=== PATIENT | male | born 1985 | race Two or more races ===

== ENCOUNTER 2025-04-15 20:08 | Inpatient (IN) | payer MEDICAID, OTHER ==
[~2025-04-15] VITALS: Ht 162.6 cm; Wt 73.8 kg
--- NOTE | 2025-04-15 20:47 | ED.PDOC ---
GI ASSESSMENT HPI Comments 39-year-old male who comes in with chief complaint of abdominal pain since this morning. The patient has a history of this pain in the past but was much milder. The pain is diffuse in nature and nonradiating. It is associated with nausea and diarrhea. At this time he states that the pain is a 9/10. He denies any fever or dysuria. He was able to ambulate into the emergency department's without any difficulty. He does admit to marijuana use as well as cigarette use. Chief Complaint: Abdominal Pain Time Seen by MD: 20:11 Reviewed Notes: Nurses Notes, Medications, Allergies (No allergies to medications) Information Source: Patient Mode of Arrival: Ambulatory Timing: Hours Duration: Since onset Prehospital treatment: None Quality: Burning, Cramping Vomitus: None Stool: Watery Severity: Moderate Recent: None Recent Hx of: None Pain Location: Diffuse Modifying Factors: Nothing Associated sign and symptoms: Nausea, Diarrhea, Abdominal Pain Past Medical History PAST MEDICAL HISTORY: Denies Surgical History: Denies all surgeries Family History Family History: Reviewed,noncontributory to illness Social History Smoker: Cigarettes Alcohol: Denies ETOH Use Drugs: Marijuana Lives In: Home Constitutional: denies: chills, diaphoresis, fatigue, fever, malaise, sweats, weakness, others EENTM: denies: blurred vision, double vision, ear bleeding, ear discharge, ear drainage, ear pain, ear ringing, eye pain, eye redness, hearing loss, mouth pain, mouth swelling, nasal discharge, nose bleeding, nose congestion, nose pa in, photophobia, tearing, throat pain, throat swelling, voice changes, others Respiratory: denies: cough, hemoptysis, orthopnea, SOB at rest, shortness of breath, SOB with excertion, stridor, wheezing, others Cardiovascular: denies: chest pain, dizzy spells, diaphoresis, Dyspnea on exertion, edema, irregular heart beat, left arm pain, lightheadedness, palpitations, PND, syncope, others Gastrointestinal: reports: abdominal pain, diarrhea, nausea; denies: abdomen distended, blood streaked bowels, constipated, dysphagia, difficulty swallowing, hematemesis, melena, poor appetite, poor fluid intake, rectal bleeding, rectal pain, vomiting, others Genitourinary: denies: burning, dysuria, flank pain, frequency, hematuria, incontinence, penile discharge, penile sore, pain, testicle pain, testicle swelling, urgency, others Neurological: denies: dizziness, fainting, headache, left sided numbness, left sided weakness, numbness, paresthesia, pre-existing deficit, right sided nu mbness, right sided weakness, seizure, speech problems, tingling, tremors, weakness, others Musculoskeletal: denies: back pain, gout, joint pain, joint swelling, muscle pain, muscle stiffness, neck pain, others Integumetry: denies: bruises, change in color, change in hair/nails, dryness, laceration, lesions, lumps, rash, wounds, others Allergic/Immunocompromised: denies: Difficulty Healing, Frequent Infections, Hives, Itching, others Hematologic/Lymphatic: denies: anemia, blood clots, easy bleeding, easy bruising, swollen glands, others Endocrine: denies: excessive hunger, excessive sweating, excessive thirst, excessive urination, flushing, intolerance to cold, intolerance to heat, unexplained weight gain, unexplained weight loss, others Psychiatric: denies: anxiety, bipolar disorder, depression, hopeless, panic disorder, schizophrenia, sleepless, suicidal, others Physical Exam General Appearance: Moderate Distress HEENT: Normal ENT Inspection, Pharynx Normal, TMs Normal Neck: Full Range of Motion, Non-Tender, Normal, Normal Inspection Respiratory: Chest Non-Tender, Lungs Clear, No Accessory Muscle Use, No Respiratory Distress, Normal Breath Sounds Cardiovascular: No Edema, No JVD, No Murmur, No Gallop, Normal Peripheral Pulses, Regular Rate/Rhythm Breast Exam: Deferred Gastrointestinal: Diffuse, No Organomegaly, No Pulsatile Mass, Normal Bowel Sounds, Soft, Tenderness Genitalia: Deferred Pelvic: Deferred Rectal: Deferred Extremities: No calf tenderness, Normal capillary refill, Normal inspection, Normal range of motion, Non-tender, No pedal edema Musculoskeletal : Apperance: Normal Neurologic: Alert, jet inspector II-XII nml as Tested, Motor Weakness, Normal Affect, Normal Mood, No Sensory Deficits Cerebellar Function: Normal Reflexes: Normal Skin: Dry, Normal Color, Warm Lymphatic: No Adenopathy Was a procedure done? Was a procedure done?: No GI differential Dx Differential Diagnosis: Appendicitis, Gastritis/PUD, Gastroenteritis, Inflammatory BD, Ischemic Bowel, Pancreatitis, Electrolyte Imbalance, Food Poisoning X-Ray, Labs, Meds, VS Vital Signs Date Time Temp Pulse Resp B/P (MAP) Pulse Ox O2 Delivery O2 Flow Rate FiO2 04/15/25 21:29 83 18 159/90 04/15/25 20:36 98.0 83 18 159/98 99 98.0 Lab Test 04/15/25 20:51 Range/Units White Blood Count 10.6 4.4-10.8 10^3/uL Red Blood Count 5.28 4.5-5.90 10^6/uL Hemoglobin 15.9 13.5-17.5 g/dL Hematocrit 46.7 41.0-53.0 % Mean Corpuscular Volume 88.5 80.0-100.0 fL Mean Corpuscular Hemoglobin 30.1 28.0-32.0 pg Mean Corpuscular Hemoglobin Concent 34.0 32.0-36.0 g/dL Red Cell Distribution Width 14.7 H 11.8-14.3 % Platelet Count 489 H 140-450 10^3/uL Mean Platelet Volume 6.4 L 6.9-10.8 fL Neutrophils (%) (Auto) 77.6 37.0-80.0 % Lymphocytes (%) (Auto) 15.4 10.0-50.0 % Monocytes (%) (Auto) 5.7 0.0-12.0 % Eosinophils (%) (Auto) 1.0 0.0-7.0 % Basophils (%) (Auto) 0.3 0.0-2.0 % Neutrophils # (Auto) 8.2 1.6-8.6 10 ^3/uL Lymphocytes # (Auto) 1.6 0.4-5.4 10 ^3/uL Monocytes # (Auto) 0.6 0-1.3 10 ^3/uL Eosinophils # (Auto) 0.1 0-0.8 10 ^3/uL Basophils # (Auto) 0 0-0.2 10 ^3/uL Nucleated Red Blood Cells 0.0 % Sodium Level 141 136-145 mmol/L Potassium Level 4.7 3.5-5.1 mmol/L Chloride Level 103 98-107 mmol/L Carbon Dioxide Level 27 20-31 mmol/L Anion Gap 11 5-15 Blood Urea Nitrogen 15 9-23 mg/dL Creatinine 1.01 0.700-1.30 mg/dL Glomerular Filtration Rate Calc 98 >90 mL/min BUN/Creatinine Ratio 14.9 10.0-20.0 Serum Glucose 110 H 74-106 mg/dL Calcium Level 10.5 H 8.7-10.4 mg/dL Total Bilirubin 0.5 0.2-1.0 mg/dL Aspartate Amino Transferase (AST) 17 13-40 U/L Alanine Aminotransferase (ALT) 22 7-40 U/L Alkaline Phosphatase 82 46-116 U/L Total Protein 7.9 5.7-8.2 g/dL Albumin 5.1 H 3.2-4.8 g/dL Lipase 32 12-53 U/L Current Medications Medications (Trade) Dose Ordered Sig/Kade Route Start Time Stop Time Status Last Admin Ondansetron HCl (Zofran) 4 mg ONCE ONCE IV 04/15/25 20:45 04/15/25 20:46 DC 04/15/25 21:29 Sodium Chloride 1,000 ml @ 1,000 mls/hr Q1H ONCE IVB 04/15/25 20:45 04/15/25 21:44 DC 04/15/25 21:28 Morphine Sulfate 4 mg ONCE ONCE IV 04/15/25 20:45 04/15/25 20:46 DC 04/15/25 21:29 PROCEDURE(s): ABPL - CT AB PEL WO CON-NO ORAL OR IV IMPRESSION: Limited noncontrast imaging. 12 mm hyperdense structures within the ascending colon, transverse colon and descending colon which may represent ingested medication/ foreign bodies. Large amount of fecal material and gas within the colon. Appendix is not completely visualized. Without complete visualization of the appendix, can not exclude acute appendicitis. IV Hep-Lock is being established The patient was given a 1 L bolus of normal saline The patient was given morphine 4 mg IV push for the pain The patient is given Zofran 4 mg for the nausea We spoke with Dr. Capellan who is the surgeon on-call and he will consult on this patient. The patient understands and agrees with the management. The patient is being admitted at this time. Images Reviewed?: Images reviewed and evaluated by me Time of 1ST Reevaluation: 20:47 Reevaluation 1ST: Unchanged Patient Education/Counseling: Diagnosis, Treatment, Prognosis Family Education/Counseling: No Family Present SEPSIS Sepsis Screen Date sepsis recognized/suspect: Apr 15, 2025 Time Sepsis recognized/suspect: 2035 Recent Procedure: No On Antibiotic Therapy: No Respiratory Rate >20: No Heart Rate >90: No Temp<36 C (96.8 F) or >38.3 C: No SBP <90 or MAP <65 mmHG: No New Acute Mental Status Change: No Is the patient on CPAP, BIPAP,: No Physician Orders Urinalysis (04/15/25 20:44) Ct Ab Pel Wo Con-No Oral Or Iv (04/15/25 20:44) Heplock Iv (04/15/25 20:44) Drug Screen (04/15/25 20:44) Vital Signs Date Time Temp Pulse Resp B/P (MAP) Pulse Ox O2 Delivery O2 Flow Rate FiO2 04/15/25 21:29 83 18 159/90 04/15/25 20:36 98.0 83 18 159/98 99 98.0 Laboratory Tests Test 04/15/25 20:51 White Blood Count 10.6 10^3/uL (4.4-10.8) Medications Medications Dose Ordered Sig/Kade Route Start Time Stop Time Status Last Admin Dose Admin Morphine Sulfate 4 mg ONCE ONCE IV 04/15/25 20:45 04/15/25 20:46 DC 04/15/25 21:29 Ondansetron HCl 4 mg ONCE ONCE IV 04/15/25 20:45 04/15/25 20:46 DC 04/15/25 21:29 Sodium Chloride 1,000 ml @ 1,000 mls/hr Q1H ONCE IVB 04/15/25 20:45 04/15/25 21:44 DC 04/15/25 21:28 Departure 1 Departure Time of Disposition: 21:59 Impression: Primary Impression: Intractable abdominal pain Additional Impression: Foreign body Disposition: ADMITTED INPATIENT Admit to: Med Surg Condition: Fair Critical Care Note Critical Care Time?: No Stability Stability form required: Yes Unstable for transfer: ED Physician Assesment (Clinical assesment) Heart Score Heart Score: Heart Score Response (Comments) Value History N/A 0 EKG N/A 0 Age N/A 0 Risk Factors N/A 0 Troponin N/A 0 Total 0 I personally scribed for EDDY KNUTSON MD ([email or web address]) on 04/15/25 at 21:45. Electronically submitted by Manolo Sandra [email or web address]). EDDY KNUTSON MD Apr 15, 2025 20:47
[2025-04-15 21:22] LABS: Hematocrit 46.7 % (41.0-53.0); Hemoglobin 15.9 g/dL (13.5-17.5); Mean Corpuscular Hemoglobin 30.1 pg (28.0-32.0); Mean Corpuscular Volume 88.5 fL (80.0-100.0); Nucleated Red Blood Cells % 0.0 %
[2025-04-15] MEDS: SODIUM CHLORIDE 0.9% 1,000 ML IVB ONE (21:28)
[2025-04-15] MEDS: MORPHINE SULFATE 4 MG/ML SYR/VIAL IV ONE (21:29)
[2025-04-15] MEDS: ONDANSETRON HCL 4 MG/2 ML VIAL IV ONE (21:29)
[2025-04-15 21:37] LABS: Alanine Aminotransferase 22 U/L (7-40); Alkaline Phosphatase 82 U/L (46-116); Anion Gap 11 (5-15); BUN/Creatinine Ratio 14.9 (10.0-20.0); Bilirubin, Total 0.5 mg/dL (0.2-1.0); Blood Urea Nitrogen 15 mg/dL (9-23); Carbon Dioxide 27 mmol/L (20-31); Chloride 103 mmol/L (98-107); Lipase 32 U/L (12-53); Potassium 4.7 mmol/L (3.5-5.1); Sodium 141 mmol/L (136-145); Total Protein 7.9 g/dL (5.7-8.2)
--- NOTE | 2025-04-15 21:39 | DVH ---
Exam: CT CT AB PEL WO CON-NO ORAL OR IV History: pain Comparison Study: None TECHNIQUE: Multidetector CT of the abdomen AND PELVIS without IV contrast. Axial, coronal and sagittal multiplanar reformats were obtained from the axial data set by the technologist. Radiation Dose Information: CT Dose: CTDI volume is 7.56 mGy. Dose-length product is 458.95 mGy*cm FINDINGS: Bibasilar atelectasis. Partially visualized heart is normal in size. Trace pericardial effusion. Liver, spleen, pancreas and adrenal glands are unremarkable. Gallbladder is unremarkable. Kidneys, ureters and urinary bladder unremarkable. Prostate is unremarkable. Stomach is unremarkable. Small bowel loops are unremarkable. Appendix is not completely visualized. Without complete visualization of the appendix, can not exclude acute appendicitis. Two 12 mm hyperdense structures within the ascending colon. Large amount of fecal material gas within the colon. Additional similar two 12 mm densities are noted within the proximal descending colon andone 12 mm similar hyperdensity within the transverse colon. No evidence of intraperitoneal free air or free fluid. No evidence of aortic aneurysm. No significant lymphadenopathy. Small fat containing umbilical hernia. Minimal body wall edema. Sclerotic focus of the right iliac bowel Large represent a small bone island. No destructive osseous lesions are noted. IMPRESSION: Limited noncontrast imaging. 12 mm hyperdense structures within the ascending colon, transverse colon and descending colon which may represent ingested medication/ foreign bodies. Large amount of fecal material and gas within the colon. Appendix is not completely visualized. Without complete visualization of the appendix, can not exclude acute appendicitis.
[2025-04-15 21:40] LABS: Albumin 5.1 g/dL (3.2-4.8); Calcium 10.5 mg/dL (8.7-10.4); Glucose 110 mg/dL (74-106)
[2025-04-15] MEDS ORDERED: ACETAMINOPHEN 325 MG TAB PO PRN (22:15)
[2025-04-15] MEDS ORDERED: MORPHINE SULFATE INJ 2 MG/ml SYRG IV PRN (22:15)
[2025-04-15] MEDS ORDERED: ONDANSETRON HCL 4 MG/2 ML VIAL IV PRN (22:15)
[2025-04-15] MEDS ORDERED: TEMAZEPAM 15 MG CAP PO PRN (22:15)
[2025-04-15] MEDS: PANTOPRAZOLE 40 MG/10 ML VIAL INJ IV ONE (23:04)
[2025-04-15 23:12] LABS: Amphetamine Screen, Urine Neg (NEGATIVE)
[2025-04-15 23:13] LABS: Cannabinoid Screen, Urine Neg (NEGATIVE)
[2025-04-15 23:14] LABS: Urine Protein, UAD Negative (Negative)
[2025-04-15 23:15] VITALS: BP 93/55; PULSE 79; RESP 18; TEMP 98.1; O2SAT 98
[2025-04-15 23:15] LABS: Barbiturate Scree,Urine Neg (NEGATIVE); Benzodiazephine Screen, Urine Neg (NEGATIVE); Cocaine Screen, Urine Neg (NEGATIVE); Opiate Scree,Urine Pos (NEGATIVE); Phencyclidine Screen, Urine Neg (NEGATIVE)
[2025-04-16] VITALS (10 sets, daily range): BP systolic 99–110; BP diastolic 58–76; PULSE 64–94; RESP 14–19; TEMP 97.4–99.4; O2SAT 96–100
[2025-04-16] MEDS: SODIUM CHLORIDE 0.9% 1,000 ML IV ONE (00:04)
--- NOTE | 2025-04-16 00:54 | DVHHP2 ---
History of Present Illness Reason for Visit: Abdominal pain History of Present Illness 39-year-old male presents for evaluation of abdominal pain. Patient endorses a two day history of abdominal pain. He states that yesterday pain was more manageable. He states that today pain was constant and sharp. He describes it as diffuse sharp. Reports developing diarrhea as well today. No nausea or vomiting. No fever or chills. Past Medical History Denies Past Surgical History Denies Family History Noncontributory Smoke: <1 pack per day ALCOHOL: none Drugs: Marijuana Lives: with Family Review of Systems Review of Systems Review of systems are currently negative otherwise addressed in HPI. Allergies: Coded Allergies: NO KNOWN ALLERGIES (Unverified , 04/15/25) Medications Current Medications Medications Dose Ordered Sig/Kade Route Start Time Stop Time Status Last Admin Dose Admin Pantoprazole Sodium 40 mg DAILY IV 04/16/25 10:00 Acetaminophen/ Hydrocodone Bitart 1 tab Q4HP PRN PO 04/15/25 22:15 Temazepam 15 mg QHSP PRN PO 04/15/25 22:15 Ondansetron HCl 4 mg Q4HP PRN IV 04/15/25 22:15 Acetaminophen 650 mg Q6HP PRN PO 04/15/25 22:15 Morphine Sulfate 2 mg Q6HPRN PRN IV 04/15/25 22:15 Exam Vital Signs Vital Signs Date Time Temp Pulse Resp B/P (MAP) Pulse Ox O2 Delivery O2 Flow Rate FiO2 04/15/25 23:15 98.1 79 18 93/55 (68) 98 98.1 Exam Gen: 31-year-old male in mild distress. Skin: Warm, dry, normal color and texture, no rash. HEENT: Normocephalic atraumatic, mucous membranes moist and pink. Neck: Cervical and supraclavicular nodes normal without enlargement, trachea is midline, thyroid gland is normal without masses. Pulmonary: Clear to auscultation and percussion bilaterally. Cardiac: Regular rate and rhythm. No murmur Abdomen: Soft, nontender, nondistended, bowel sounds present all 4 quadrants, no guarding, no rigidity, no organomegaly. Extremities: No cyanosis, clubbing, no edema Neuro: Cranial nerves II through XII grossly intact, normal affect and speech, no focal motor deficits. Labs/Xrays Labs Test 04/15/25 22:30 04/15/25 20:51 Range/Units Urine Color Light-yellow Yellow Urine Clarity Clear Clear Urine pH 5.5 5.0-9.0 Urine Specific Strong 1.022 1.001-1.035 Urine Protein Negative Negative Urine Ketones Negative Negative Urine Blood Negative Negative /uL Urine Nitrite Negative Negative Urine Bilirubin Negative Negative Urine Urobilinogen Normal Negative mg/dL Urine Leukocyte Esterase Negative Negative /uL Urine RBC None seen 0 - 3 /hpf Urine Microscopic WBC 5 H 0-3 /HPF Urine Squamous Epithelial Cells None seen <5 /hpf Urine Bacteria None seen None Seen /hpf Urine Glucose Normal Normal mg/dL Urine Opiates Screen Pos NEGATIVE Urine Fentanyl Screen Neg NEGATIVE Urine Barbiturates Screen Neg NEGATIVE Urine Phencyclidine Screen Neg NEGATIVE Urine Amphetamines Screen Neg NEGATIVE Urine Benzodiazepines Screen Neg NEGATIVE Urine Cocaine Screen Neg NEGATIVE Urine Cannabinoids Screen Neg NEGATIVE White Blood Count 10.6 4.4-10.8 10^3/uL Red Blood Count 5.28 4.5-5.90 10^6/uL Hemoglobin 15.9 13.5-17.5 g/dL Hematocrit 46.7 41.0-53.0 % Mean Corpuscular Volume 88.5 80.0-100.0 fL Mean Corpuscular Hemoglobin 30.1 28.0-32.0 pg Mean Corpuscular Hemoglobin Concent 34.0 32.0-36.0 g/dL Red Cell Distribution Width 14.7 H 11.8-14.3 % Platelet Count 489 H 140-450 10^3/uL Mean Platelet Volume 6.4 L 6.9-10.8 fL Neutrophils (%) (Auto) 77.6 37.0-80.0 % Lymphocytes (%) (Auto) 15.4 10.0-50.0 % Monocytes (%) (Auto) 5.7 0.0-12.0 % Eosinophils (%) (Auto) 1.0 0.0-7.0 % Basophils (%) (Auto) 0.3 0.0-2.0 % Neutrophils # (Auto) 8.2 1.6-8.6 10 ^3/uL Lymphocytes # (Auto) 1.6 0.4-5.4 10 ^3/uL Monocytes # (Auto) 0.6 0-1.3 10 ^3/uL Eosinophils # (Auto) 0.1 0-0.8 10 ^3/uL Basophils # (Auto) 0 0-0.2 10 ^3/uL Nucleated Red Blood Cells 0.0 % Sodium Level 141 136-145 mmol/L Potassium Level 4.7 3.5-5.1 mmol/L Chloride Level 103 98-107 mmol/L Carbon Dioxide Level 27 20-31 mmol/L Anion Gap 11 5-15 Blood Urea Nitrogen 15 9-23 mg/dL Creatinine 1.01 0.700-1.30 mg/dL Glomerular Filtration Rate Calc 98 >90 mL/min BUN/Creatinine Ratio 14.9 10.0-20.0 Serum Glucose 110 H 74-106 mg/dL Calcium Level 10.5 H 8.7-10.4 mg/dL Total Bilirubin 0.5 0.2-1.0 mg/dL Aspartate Amino Transferase (AST) 17 13-40 U/L Alanine Aminotransferase (ALT) 22 7-40 U/L Alkaline Phosphatase 82 46-116 U/L Total Protein 7.9 5.7-8.2 g/dL Albumin 5.1 H 3.2-4.8 g/dL Lipase 32 12-53 U/L SEPSIS Sepsis Screen Date sepsis recognized/suspect: Apr 15, 2025 Time Sepsis recognized/suspect: 2035 Recent Procedure: No On Antibiotic Therapy: No Respiratory Rate >20: No Heart Rate >90: No Temp<36 C (96.8 F) or >38.3 C: No SBP <90 or MAP <65 mmHG: No New Acute Mental Status Change: No Is the patient on CPAP, BIPAP,: No Physician Orders Ct Ab Pel Wo Con-No Oral Or Iv (04/15/25 20:44) Heplock Iv (04/15/25 20:44) * Gi D[facility] Marketing Production Manager (04/15/25 22:10) Pantoprazole (Protonix) (04/16/25 10:00) Sodium Chloride 0.9% (04/15/25 22:15) Admit (04/15/25 22:10) Hydrocodone-Acet 5/325mg Tab (Harshaw (04/15/25 22:15) Temazepam (Restoril) (04/15/25 22:15) Ondansetron Hcl (Zofran) (04/15/25 22:15) Condition: Stable (04/15/25 22:10) Acetaminophen Tablet (Tylenol Tablet) (04/15/25 22:15) Clear Liq Diet (04/16/25 Breakfast) Bedrest With Bathroom Privileg (04/15/25 22:10) Morphine Sulfate Injection (04/15/25 22:15) Mrsa Screen (04/16/25 00:40) C-Diff: Collect Next Specimen ONCE (04/16/25 00:40) Education - Smoking Cessation (04/16/25 00:40) * Smoking Cessation Consult (04/16/25 00:40) Vital Signs Date Time Temp Pulse Resp B/P (MAP) Pulse Ox O2 Delivery O2 Flow Rate FiO2 04/15/25 23:15 98.1 79 18 93/55 (68) 98 98.1 04/15/25 21:29 83 18 159/90 04/15/25 20:36 98.0 83 18 159/98 99 98.0 Laboratory Tests Test 04/15/25 20:51 White Blood Count 10.6 10^3/uL (4.4-10.8) Medications Medications Dose Ordered Sig/Kade Route Start Time Stop Time Status Last Admin Dose Admin Morphine Sulfate 4 mg ONCE ONCE IV 04/15/25 20:45 04/15/25 20:46 DC 04/15/25 21:29 4 MG Ondansetron HCl 4 mg ONCE ONCE IV 04/15/25 20:45 04/15/25 20:46 DC 04/15/25 21:29 4 MG Pantoprazole Sodium 40 mg ONCE ONCE IV 04/15/25 22:15 04/15/25 22:29 DC 04/15/25 23:04 40 MG Sodium Chloride 1,000 ml @ 100 mls/hr Q10H ONCE IV 04/15/25 22:15 04/16/25 08:14 04/16/25 00:04 100 MLS/HR Sodium Chloride 1,000 ml @ 1,000 mls/hr Q1H ONCE IVB 04/15/25 20:45 04/15/25 21:44 DC 04/15/25 21:28 1,000 MLS/HR Assessment/Plan Assessment/Plan Assessment Intractable abdominal pain Foreign body Plan Admit the patient to [facility] to the hospitalist Surgery consulted by ER provider GI consult NPO Maintenance IV fluids Continue treatment per orders. Plan discussed with: Patient My Orders Orders - NEHA CLAYTON Procedure Category Date Status Time * Gi [facility] Marketing Production Manager CONS 04/15/25 Transmitted 22:10 Pantoprazole PHA 04/16/25 In Process (Protonix) 10:00 Sodium Chloride 0.9% PHA 04/15/25 In Process 22:15 Admit ADMIT 04/15/25 Transmitted 22:10 Hydrocodone-Acet PHA 04/15/25 In Process 5/325mg Tab (Harshaw 22:15 Temazepam (Restoril) PHA 04/15/25 In Process 22:15 Ondansetron Hcl PHA 04/15/25 In Process (Zofran) 22:15 Condition: Stable MINO 04/15/25 In Process 22:10 Acetaminophen Tablet PHA 04/15/25 In Process (Tylenol Tablet) 22:15 Clear Liq Diet DIET 04/16/25 Transmitted Breakfast Bedrest With Bathroom MINO 04/15/25 In Process Privileg 22:10 Morphine Sulfate PHA 04/15/25 In Process Injection 22:15 Mrsa Screen MARCUS 04/16/25 Uncollected 00:40 C-Diff: Collect Next MINO 04/16/25 In Process Specimen 00:40 Education - Smoking MINO 04/16/25 In Process Cessation 00:40 * Smoking Cessation CONS 04/16/25 Transmitted Consult 00:40 Date of Service: Apr 15, 2025 Billing Provider: NEHA CLAYTON Common Visit Codes: [id number] INP/OBS CARE (MOD) NEHA CLAYTON Apr 16, 2025 00:54
[2025-04-16] MEDS: HYDROcodone-ACET 5/325MG TAB PO PRN (01:03)
[2025-04-16 02:24] LABS: INR 1.01 (0.9-1.15); Partial Thromboplastin Time 28.2 SEC (24.5-34.5); Prothrombin Time 10.7 sec (9.3-11.8)
[2025-04-16] MEDS: PANTOPRAZOLE 40 MG/10 ML VIAL INJ IV SCH (11:01)
--- NOTE | 2025-04-16 12:37 | DVHINCON2 ---
GI Consult Consult Note GI consult note Date of Consultation: 04/16/2025 Chief Complaint: Abdominal pain Referring Physician: Hima CARREON H&P: 39-year-old Lao-speaking male admitted with complains of abdominal pain. Fredi brooke at bedside. Patient admits to having abdominal pain which was generalized about one day ago, and has improving pain at this time. No nausea or vomiting. Patient having loose stool for one day about two episodes. No melena or red blood in stool. Patient denies any substance use. Recently was taking omeprazole. No GI procedures in past. No weight loss Past Medical History: Denies Past Surgical History: Denies Social History: Smoke: <1 pack per day ALCOHOL: none Drugs: Marijuana Lives: with Family Family History: Noncontributory Review of Systems: Constitutional: no fever, chill, weight loss HEENT: no eye pain, no hearing loss, no oral lesion, no scleral icterus Heart: no chest pain, no chest pressure Lung: no cough, no dyspnea with exertion Abdomen: see HPI Physical exam: General: NAD, AAOX3 Chest: lung ibrahim clear to auscultation Heart: RRR, no murmur Abdomen: non-distended, no tenderness to palpation, +BS Labs: Labs Test 04/16/25 01:52 04/15/25 22:30 04/15/25 20:51 Range/Units Prothrombin Time 10.7 9.3-11.8 sec Prothrombin Time INR 1.01 0.9-1.15 Activated Partial Thromboplast Time 28.2 24.5-34.5 SEC Urine Color Light-yellow Yellow Urine Clarity Clear Clear Urine pH 5.5 5.0-9.0 Urine Specific Conroy 1.022 1.001-1.035 Urine Protein Negative Negative Urine Ketones Negative Negative Urine Blood Negative Negative /uL Urine Nitrite Negative Negative Urine Bilirubin Negative Negative Urine Urobilinogen Normal Negative mg/dL Urine Leukocyte Esterase Negative Negative /uL Urine RBC None seen 0 - 3 /hpf Urine Microscopic WBC 5 H 0-3 /HPF Urine Squamous Epithelial Cells None seen <5 /hpf Urine Bacteria None seen None Seen /hpf Urine Glucose Normal Normal mg/dL Urine Opiates Screen Pos NEGATIVE Urine Fentanyl Screen Neg NEGATIVE Urine Barbiturates Screen Neg NEGATIVE Urine Phencyclidine Screen Neg NEGATIVE Urine Amphetamines Screen Neg NEGATIVE Urine Benzodiazepines Screen Neg NEGATIVE Urine Cocaine Screen Neg NEGATIVE Urine Cannabinoids Screen Neg NEGATIVE White Blood Count 10.6 4.4-10.8 10^3/uL Red Blood Count 5.28 4.5-5.90 10^6/uL Hemoglobin 15.9 13.5-17.5 g/dL Hematocrit 46.7 41.0-53.0 % Mean Corpuscular Volume 88.5 80.0-100.0 fL Mean Corpuscular Hemoglobin 30.1 28.0-32.0 pg Mean Corpuscular Hemoglobin Concent 34.0 32.0-36.0 g/dL Red Cell Distribution Width 14.7 H 11.8-14.3 % Platelet Count 489 H 140-450 10^3/uL Mean Platelet Volume 6.4 L 6.9-10.8 fL Neutrophils (%) (Auto) 77.6 37.0-80.0 % Lymphocytes (%) (Auto) 15.4 10.0-50.0 % Monocytes (%) (Auto) 5.7 0.0-12.0 % Eosinophils (%) (Auto) 1.0 0.0-7.0 % Basophils (%) (Auto) 0.3 0.0-2.0 % Neutrophils # (Auto) 8.2 1.6-8.6 10 ^3/uL Lymphocytes # (Auto) 1.6 0.4-5.4 10 ^3/uL Monocytes # (Auto) 0.6 0-1.3 10 ^3/uL Eosinophils # (Auto) 0.1 0-0.8 10 ^3/uL Basophils # (Auto) 0 0-0.2 10 ^3/uL Nucleated Red Blood Cells 0.0 % Sodium Level 141 136-145 mmol/L Potassium Level 4.7 3.5-5.1 mmol/L Chloride Level 103 98-107 mmol/L Carbon Dioxide Level 27 20-31 mmol/L Anion Gap 11 5-15 Blood Urea Nitrogen 15 9-23 mg/dL Creatinine 1.01 0.700-1.30 mg/dL Glomerular Filtration Rate Calc 98 >90 mL/min BUN/Creatinine Ratio 14.9 10.0-20.0 Serum Glucose 110 H 74-106 mg/dL Calcium Level 10.5 H 8.7-10.4 mg/dL Total Bilirubin 0.5 0.2-1.0 mg/dL Aspartate Amino Transferase (AST) 17 13-40 U/L Alanine Aminotransferase (ALT) 22 7-40 U/L Alkaline Phosphatase 82 46-116 U/L Total Protein 7.9 5.7-8.2 g/dL Albumin 5.1 H 3.2-4.8 g/dL Lipase 32 12-53 U/L Imaging: CT abdomen pelvis IMPRESSION: Limited noncontrast imaging. 12 mm hyperdense structures within the ascending colon, transverse colon and descending colon which may represent ingested medication/ foreign bodies. Large amount of fecal material and gas within the colon. Appendix is not completely visualized. Without complete visualization of the appendix, can not exclude acute appendicitis. Assessment: Abdominal pain improving Foreign body in colon possible small ingested material Plan: Discussed with Dr. Mendoza Mag citrate Full liquid diet advance as tolerated Recommend outpatient elective colonoscopy Discussed plan with patient and RN Thank you for this consult Date of Service: Apr 16, 2025 Billing Provider: ASHKAN LU Common Visit Codes: CONSULT ONLY Consultation Codes: [id number] CONSULT <60MIN ASHKAN LU Apr 16, 2025 12:37
--- NOTE | 2025-04-16 14:47 | DVHPN2 ---
Subjective PATIENT IS HERE FOR ABDOMINAL PAIN. CT ABDOMEN AND PELVIS WAS DONE WHICH SHOWS SUSPECTED FOREIGN BODIES IN THE ASCENDING COLON TRANSVERSE COLON AND DESCENDING COLON. 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 Medications Current Medications Medications Dose Ordered Sig/Kade Route Start Time Stop Time Status Last Admin Dose Admin Pantoprazole Sodium 40 mg DAILY IV 04/16/25 10:00 04/16/25 11:01 40 MG Acetaminophen/ Hydrocodone Bitart 1 tab Q4HP PRN PO 04/15/25 22:15 04/16/25 01:03 1 TAB Temazepam 15 mg QHSP PRN PO 04/15/25 22:15 Ondansetron HCl 4 mg Q4HP PRN IV 04/15/25 22:15 Acetaminophen 650 mg Q6HP PRN PO 04/15/25 22:15 Morphine Sulfate 2 mg Q6HPRN PRN IV 04/15/25 22:15 Laboratory Results Laboratory Tests 04/15/25 20:51 Chemistry Test 04/15/25 20:51 Albumin 5.1 g/dL (3.2-4.8) H Calcium Level 10.5 mg/dL (8.7-10.4) H Total Protein 7.9 g/dL (5.7-8.2) Coagulation Test 04/16/25 01:52 Prothrombin Time 10.7 sec (9.3-11.8) Prothrombin Time INR 1.01 (0.9-1.15) Activated Partial Thromboplast Time 28.2 SEC (24.5-34.5) Lipid panel Test 04/15/25 20:51 Lipase 32 U/L (12-53) LFT Test 04/15/25 20:51 Alanine Aminotransferase (ALT) 22 U/L (7-40) Alkaline Phosphatase 82 U/L (46-116) Aspartate Amino Transferase (AST) 17 U/L (13-40) Total Bilirubin 0.5 mg/dL (0.2-1.0) Urinalysis Test 04/15/25 22:30 Urine Color Light-yellow (Yellow) Urine Clarity Clear (Clear) Urine pH 5.5 (5.0-9.0) Urine Specific [place] 1.022 (1.001-1.035) Urine Protein Negative (Negative) Urine Ketones Negative (Negative) Urine Blood Negative /uL (Negative) Urine Nitrite Negative (Negative) Urine Bilirubin Negative (Negative) Urine Urobilinogen Normal mg/dL (Negative) Urine Leukocyte Esterase Negative /uL (Negative) Urine RBC None seen /hpf (0 - 3) Urine Microscopic WBC 5 /HPF (0-3) H Urine Squamous Epithelial Cells None seen /hpf (<5) Urine Bacteria None seen /hpf (None Seen) Urine Glucose Normal mg/dL (Normal) Assessment/Plan Assessment/Plan 39-YEAR-OLD MALE WITH A KNOWN HISTORY OF GERD, CHRONIC TOBACCO USE DISORDER PRESENTED TO THE HOSPITAL WITH THE ABDOMINAL PAIN AFTER HE TOOK SOME GERD PILLS FOUND TO HAVE 1. ABDOMINAL PAIN 2. SUSPECTED FOREIGN BODY 3. GERD 4. CHRONIC TOBACCO USE DISORDER -DIET TOLERATED, BOWEL REGIMEN, FOLLOW UP GENERAL SURGERY RECOMMENDATIONS. Plan discussed with: Patient Problem List: (1) Intractable abdominal pain Date of Service: Apr 16, 2025 Billing Provider: ANITRA GUTIERREZ MD Common Visit Codes: [id number] INP/OBS CARE(HIGH) ANITRA GUTIERREZ MD Apr 16, 2025 14:47
[2025-04-16] MEDS: MAGNESIUM CITRATE SOLUTION 300 ML BTL PO ONE (14:48)
--- NOTE | 2025-04-16 16:22 | DVHINCON2 ---
Consultation - Surgical Date Seen: Apr 16, 2025 Referring Physician Reason for Consultation Abdominal pain History of Present Illness History of Present Illness Mr. Aadms is a 39-year-old male who presented with diffuse abdominal pain to the ED yesterday. States that this happens during on occasion he feels bloated and distended also. He suffers from a lot of reflux and usually takes omeprazole, which she took several pills yesterday. Denies nausea vomiting. Currently hungry. Past Medical/Surgical History Past Medical/Surgical History Past medical history GERD Past surgical history denies Family and Social History Family and Social History Family history noncontributory ETOH/T Ob/drugs denies Allergies and medications Allergies: Coded Allergies: NO KNOWN ALLERGIES (Unverified , 04/15/25) Home Meds No Active Prescriptions or Reported Meds Review of systems Review of Systems: Deferred Examination Vital signs Vital Signs Date Time Temp Pulse Resp B/P (MAP) Pulse Ox O2 Delivery O2 Flow Rate FiO2 04/16/25 12:45 98.2 68 18 107/69 (82) 97 98.2 04/16/25 08:00 Room Air* 0 21 Medications Current Medications Medications (Trade) Dose Ordered Sig/Kade Route PRN Reason Start Time Stop Time Status Last Admin Pantoprazole Sodium (Protonix) 40 mg DAILY IV 04/16/25 10:00 04/16/25 11:01 Acetaminophen/ Hydrocodone Bitart ([place] 5/325MG Tab) 1 tab Q4HP PRN PO MODERATE PAIN (4-6 PAIN SCALE) 04/15/25 22:15 04/16/25 01:03 Temazepam (Restoril) 15 mg QHSP PRN PO FOR INSOMNIA 04/15/25 22:15 Ondansetron HCl (Zofran) 4 mg Q4HP PRN IV NAUSEA / VOMITING 04/15/25 22:15 Acetaminophen (Tylenol Tablet) 650 mg Q6HP PRN PO PAIN SCALE 1-3 OR TEMP>100.4 04/15/25 22:15 Morphine Sulfate 2 mg Q6HPRN PRN IV SEVERE PAIN (7-10 PAIN SCALE) 04/15/25 22:15 Laboratory Labs Test 04/16/25 01:52 04/15/25 22:30 04/15/25 20:51 Range/Units Prothrombin Time 10.7 9.3-11.8 sec Prothrombin Time INR 1.01 0.9-1.15 Activated Partial Thromboplast Time 28.2 24.5-34.5 SEC Urine Color Light-yellow Yellow Urine Clarity Clear Clear Urine pH 5.5 5.0-9.0 Urine Specific [place] 1.022 1.001-1.035 Urine Protein Negative Negative Urine Ketones Negative Negative Urine Blood Negative Negative /uL Urine Nitrite Negative Negative Urine Bilirubin Negative Negative Urine Urobilinogen Normal Negative mg/dL Urine Leukocyte Esterase Negative Negative /uL Urine RBC None seen 0 - 3 /hpf Urine Microscopic WBC 5 H 0-3 /HPF Urine Squamous Epithelial Cells None seen <5 /hpf Urine Bacteria None seen None Seen /hpf Urine Glucose Normal Normal mg/dL Urine Opiates Screen Pos NEGATIVE Urine Fentanyl Screen Neg NEGATIVE Urine Barbiturates Screen Neg NEGATIVE Urine Phencyclidine Screen Neg NEGATIVE Urine Amphetamines Screen Neg NEGATIVE Urine Benzodiazepines Screen Neg NEGATIVE Urine Cocaine Screen Neg NEGATIVE Urine Cannabinoids Screen Neg NEGATIVE White Blood Count 10.6 4.4-10.8 10^3/uL Red Blood Count 5.28 4.5-5.90 10^6/uL Hemoglobin 15.9 13.5-17.5 g/dL Hematocrit 46.7 41.0-53.0 % Mean Corpuscular Volume 88.5 80.0-100.0 fL Mean Corpuscular Hemoglobin 30.1 28.0-32.0 pg Mean Corpuscular Hemoglobin Concent 34.0 32.0-36.0 g/dL Red Cell Distribution Width 14.7 H 11.8-14.3 % Platelet Count 489 H 140-450 10^3/uL Mean Platelet Volume 6.4 L 6.9-10.8 fL Neutrophils (%) (Auto) 77.6 37.0-80.0 % Lymphocytes (%) (Auto) 15.4 10.0-50.0 % Monocytes (%) (Auto) 5.7 0.0-12.0 % Eosinophils (%) (Auto) 1.0 0.0-7.0 % Basophils (%) (Auto) 0.3 0.0-2.0 % Neutrophils # (Auto) 8.2 1.6-8.6 10 ^3/uL Lymphocytes # (Auto) 1.6 0.4-5.4 10 ^3/uL Monocytes # (Auto) 0.6 0-1.3 10 ^3/uL Eosinophils # (Auto) 0.1 0-0.8 10 ^3/uL Basophils # (Auto) 0 0-0.2 10 ^3/uL Nucleated Red Blood Cells 0.0 % Sodium Level 141 136-145 mmol/L Potassium Level 4.7 3.5-5.1 mmol/L Chloride Level 103 98-107 mmol/L Carbon Dioxide Level 27 20-31 mmol/L Anion Gap 11 5-15 Blood Urea Nitrogen 15 9-23 mg/dL Creatinine 1.01 0.700-1.30 mg/dL Glomerular Filtration Rate Calc 98 >90 mL/min BUN/Creatinine Ratio 14.9 10.0-20.0 Serum Glucose 110 H 74-106 mg/dL Calcium Level 10.5 H 8.7-10.4 mg/dL Total Bilirubin 0.5 0.2-1.0 mg/dL Aspartate Amino Transferase (AST) 17 13-40 U/L Alanine Aminotransferase (ALT) 22 7-40 U/L Alkaline Phosphatase 82 46-116 U/L Total Protein 7.9 5.7-8.2 g/dL Albumin 5.1 H 3.2-4.8 g/dL Lipase 32 12-53 U/L Examination: GENERAL:Normal (AAO x3), HEENT:Normal (No icterus, neck supple), LUNGS:Normal (Nonlabored breathing with symmetric expansion), ABDOMEN:Normal (Flat, small umbilical hernia, reducible and fat containing, nontender, soft depressible) Problem List/Assessment/Plan Problems: (1) Intractable abdominal pain Assessment and Plan Mr. Adams is a 39-year-old male who presented with the abdominal pain yesterday, off unknown etiology. Patient does suffer from GERD and medicates with the omeprazole, so likely gastric in nature. I was consulted due to the abdominal pain and due to a CT read stating possible foreign bodies inside the colon. I reviewed the images myself, I see the hyperechoic material in the colon, likely pills that he took yesterday. Given that the patient is feeling fine today, is hungry, and has no other complaints or CT findings, there is no surgical intervention indicated. Patient can have his diet advanced in his cleared per surgical standpoint. I will sign off, please call with any questions or concerns. Plan discussed with Plan discussed with: Patient Visit Coding Surgery Date of Service if different f: Apr 16, 2025 Billing Provider: CECILIA LAYNE MD Surgery Visit Codes: [id number] - INP CONSULT <110 MIN CECILIA LAYNE MD Apr 16, 2025 16:22
[2025-04-17] VITALS (7 sets, daily range): BP systolic 91–109; BP diastolic 59–78; PULSE 66–93; RESP 15–18; TEMP 97.4–99.7; O2SAT 95–99
--- NOTE | 2025-04-17 15:22 | DVHDS2 ---
Discharge Summary Date of Admission Apr 15, 2025 at 22:10 Date of Discharge: Apr 17, 2025 Labs/Diagnostic Data: Laboratory Results Test 04/16/25 01:52 04/15/25 22:30 04/15/25 20:51 Prothrombin Time 10.7 sec (9.3-11.8) Prothrombin Time INR 1.01 (0.9-1.15) Activated Partial Thromboplast Time 28.2 SEC (24.5-34.5) Urine Color Light-yellow (Yellow) Urine Clarity Clear (Clear) Urine pH 5.5 (5.0-9.0) Urine Specific [place] 1.022 (1.001-1.035) Urine Protein Negative (Negative) Urine Ketones Negative (Negative) Urine Blood Negative /uL (Negative) Urine Nitrite Negative (Negative) Urine Bilirubin Negative (Negative) Urine Urobilinogen Normal mg/dL (Negative) Urine Leukocyte Esterase Negative /uL (Negative) Urine RBC None seen /hpf (0 - 3) Urine Microscopic WBC 5 /HPF (0-3) Urine Squamous Epithelial Cells None seen /hpf (<5) Urine Bacteria None seen /hpf (None Seen) Urine Glucose Normal mg/dL (Normal) Urine Opiates Screen Pos (NEGATIVE) Urine Fentanyl Screen Neg (NEGATIVE) Urine Barbiturates Screen Neg (NEGATIVE) Urine Phencyclidine Screen Neg (NEGATIVE) Urine Amphetamines Screen Neg (NEGATIVE) Urine Benzodiazepines Screen Neg (NEGATIVE) Urine Cocaine Screen Neg (NEGATIVE) Urine Cannabinoids Screen Neg (NEGATIVE) White Blood Count 10.6 10^3/uL (4.4-10.8) Red Blood Count 5.28 10^6/uL (4.5-5.90) Hemoglobin 15.9 g/dL (13.5-17.5) Hematocrit 46.7 % (41.0-53.0) Mean Corpuscular Volume 88.5 fL (80.0-100.0) Mean Corpuscular Hemoglobin 30.1 pg (28.0-32.0) Mean Corpuscular Hemoglobin Concent 34.0 g/dL (32.0-36.0) Red Cell Distribution Width 14.7 % (11.8-14.3) Platelet Count 489 10^3/uL (140-450) Mean Platelet Volume 6.4 fL (6.9-10.8) Neutrophils (%) (Auto) 77.6 % (37.0-80.0) Lymphocytes (%) (Auto) 15.4 % (10.0-50.0) Monocytes (%) (Auto) 5.7 % (0.0-12.0) Eosinophils (%) (Auto) 1.0 % (0.0-7.0) Basophils (%) (Auto) 0.3 % (0.0-2.0) Neutrophils # (Auto) 8.2 10 ^3/uL (1.6-8.6) Lymphocytes # (Auto) 1.6 10 ^3/uL (0.4-5.4) Monocytes # (Auto) 0.6 10 ^3/uL (0-1.3) Eosinophils # (Auto) 0.1 10 ^3/uL (0-0.8) Basophils # (Auto) 0 10 ^3/uL (0-0.2) Nucleated Red Blood Cells 0.0 % Sodium Level 141 mmol/L (136-145) Potassium Level 4.7 mmol/L (3.5-5.1) Chloride Level 103 mmol/L (98-107) Carbon Dioxide Level 27 mmol/L (20-31) Anion Gap 11 (5-15) Blood Urea Nitrogen 15 mg/dL (9-23) Creatinine 1.01 mg/dL (0.700-1.30) Glomerular Filtration Rate Calc 98 mL/min (>90) BUN/Creatinine Ratio 14.9 (10.0-20.0) Serum Glucose 110 mg/dL (74-106) Calcium Level 10.5 mg/dL (8.7-10.4) Total Bilirubin 0.5 mg/dL (0.2-1.0) Aspartate Amino Transferase (AST) 17 U/L (13-40) Alanine Aminotransferase (ALT) 22 U/L (7-40) Alkaline Phosphatase 82 U/L (46-116) Total Protein 7.9 g/dL (5.7-8.2) Albumin 5.1 g/dL (3.2-4.8) Lipase 32 U/L (12-53) Other Laboratory Tests 04/15/25 20:51 Brief Hx & Hospital Course: 39-YEAR-OLD MALE WITH A KNOWN HISTORY OF GERD, CHRONIC TOBACCO USE DISORDER PRESENTED TO THE HOSPITAL WITH THE ABDOMINAL PAIN AFTER HE TOOK SOME GERD PILLS FOUND TO HAVE INTRACTABLE ABDOMINAL PAIN. PATIENT WAS EVENTUALLY ADMITTED PATIENT WAS SEEN BY GENERAL SURGERY RECOMMENDED TO BE ON DIET AND BOWEL REGIMEN. PATIENT IS CURRENTLY HAVING BOWEL MOVEMENTS AND TOLERATING DIET. PATIENT DENIES ANY ABDOMINAL PAIN AND STABLE TO BE DISCHARGED. NICOTINE CESSATION COUNSELING HAS BEEN DISCUSSED. -DIET TOLERATED, BOWEL REGIMEN, FOLLOW UP GENERAL SURGERY RECOMMENDATIONS. Condition at Discharge: Stable Final Diagnosis/Problems List 39-YEAR-OLD MALE WITH A KNOWN HISTORY OF GERD, CHRONIC TOBACCO USE DISORDER PRESENTED TO THE HOSPITAL WITH THE ABDOMINAL PAIN AFTER HE TOOK SOME GERD PILLS FOUND TO HAVE 1. ABDOMINAL PAIN, RESOLVED 2. SUSPECTED FOREIGN BODY 3. GERD 4. CHRONIC TOBACCO USE DISORDER -DIET TOLERATED, BOWEL REGIMEN, FOLLOW UP GENERAL SURGERY RECOMMENDATIONS. Discharge Disposition: Home SNF Discharge Will this Physician continue t: No Discharge Instruct/Medications Diet: Regular Activity: No Restrictions, As Tolerated Follow Up/Referral: PLEASE FOLLOW UP WITH THE PCP IN 1-2 WEEKS Medication Profile: No Active Prescriptions or Reported Meds No Active Prescriptions or Reported Meds Discharge Statement: "Patient was advised to return to the ER or call 911 if any headaches, dizziness, shortness of breath, chest pain, abdominal pain, bleeding, fevers, or worsening of medical condition. Patient was counseled about treatment plan, medications, possible side effects, patientverbalized understanding. All questions were answered to the best of my ability. This discharge took greater then 30 minutes in planning, reviewing documentation, counseling the patient, and discussing with other team members." ASSESSMENT ASSESSMENT Assessment 39-YEAR-OLD MALE WITH A KNOWN HISTORY OF GERD, CHRONIC TOBACCO USE DISORDER PRESENTED TO THE HOSPITAL WITH THE ABDOMINAL PAIN AFTER HE TOOK SOME GERD PILLS FOUND TO HAVE 1. ABDOMINAL PAIN, RESOLVED 2. SUSPECTED FOREIGN BODY 3. GERD 4. CHRONIC TOBACCO USE DISORDER -DIET TOLERATED, BOWEL REGIMEN, FOLLOW UP GENERAL SURGERY RECOMMENDATIONS. Date of Service: Apr 17, 2025 Billing Provider: ANITRA GUTIERREZ MD Common Visit Codes: [id number] DISCH DAY >30min ANITRA GUTIERREZ MD Apr 17, 2025 15:22
--- NOTE | 2025-04-17 17:03 | DVHPN2 ---
Progress Note Date Seen: Apr 17, 2025 Resident Creating Document: AMBROSIO GRADY RESIDENT Medical Necessity Reason Pt with a Central, PICC or Fol: No Subjective Review of Systems 39-year-old Iranian-speaking male admitted with complains of abdominal pain. Fredi Gonsales translating at bedside. Patient admits to having abdominal pain which was generalized about one day ago, and has improving pain at this time. No nausea or vomiting. Patient having loose stool for one day about two episodes. No melena or red blood in stool. Patient denies any substance use. Recently was taking omeprazole. No GI procedures in past. No weight loss Past Medical History: Denies Past Surgical History: Denies Social History: Smoke: <1 pack per day ALCOHOL: none Drugs: Marijuana Lives: with Family Family History: Noncontributory Patient reports: No new complaints Changes from previous H/P or p: No Changes Objective vital signs Vital Sign Date Time Temp Pulse Resp B/P (MAP) Pulse Ox O2 Delivery O2 Flow Rate FiO2 04/17/25 16:43 99.7 84 16 106/66 (79) 98 99.7 04/17/25 08:00 Room Air* 0 21 Total Intake and Output 04/16/25 04/16/25 04/17/25 15:00 23:00 07:00 Intake Total 975 ml 1000 ml Balance 975 ml 1000 ml medications Current Medications Medications Dose Ordered Sig/Kade Route Start Time Stop Time Status Last Admin Dose Admin Pantoprazole Sodium 40 mg DAILY IV 04/16/25 10:00 04/17/25 10:42 40 MG Acetaminophen/ Hydrocodone Bitart 1 tab Q4HP PRN PO 04/15/25 22:15 04/16/25 01:03 1 TAB Temazepam 15 mg QHSP PRN PO 04/15/25 22:15 Ondansetron HCl 4 mg Q4HP PRN IV 04/15/25 22:15 Acetaminophen 650 mg Q6HP PRN PO 04/15/25 22:15 Morphine Sulfate 2 mg Q6HPRN PRN IV 04/15/25 22:15 Examination Patient lying in bed, in no acute distress General: Well-built, afebrile, palor, mucosae are moist Cardiovascular: Regular S1 and S2. No murmurs, gallops or rubs. No JVD elevation. No pedal edema Respiratory: Normal B/L air entry on room air. Clear lung sounds on auscultation Abdomen: Soft, nontender, nondistended, normoactive bowel sounds, no rebound tenderness, no organomegaly, no masses Genitourinary: Deferred MSK/skin: Mobilizes 4 limbs. Skin is dry and warm Neurological: No motor, no sensitive deficits, normal speech. Pupils are isocoric and reactive. Psych/Mental Status: A/Ox3 laboratory and microbiology Laboratory Tests 04/15/25 20:51 Test 04/15/25 20:51 Range/Units Serum Glucose 110 H 74-106 mg/dL Microbiology Date/Time Source Procedure Growth Status 04/16/25 11:09 Stool Clostridium difficile Toxin Assay - Final Complete 04/16/25 06:40 Nose MRSA Screen - Final Complete Labs and/or images reviewed: Labs reviewed by me, Image(s) reviewed by me Problem List/Assessment/Plan Problem List/Assessment/Plan Abdominal pain improving Foreign body in colon possible small ingested material History of GERD Ruled out C diff Plan: Recommendation: Patient reports feeling fine, he has been discharged home. Stable to be discharged. Mag citrate Full liquid diet advance as tolerated Recommend outpatient elective colonoscopy Discussed plan with patient and RN Thank you for consulting GI Plan discussed with patient in which all questions have been answered Case discussed with Dr. Mendoza Plan discussed with: Patient AMBROSIO GRADY RESIDENT Apr 17, 2025 17:03
== END 2025-04-17 19:05 | disposition home or self-care (01) | DRG 243 ==
LOC: ER 20:08 → OVERFLOW 22:10 → WEST WING 04-16 02:45 → TELE-WESTW 04-16 03:36
PROVIDERS: ADMIT Internal Medicine; ATTEND Internal Medicine
DX: K21.9 Gastro-esophageal reflux disease without esophagitis (principal); T18.4XXA Foreign body in colon, initial encounter; F17.210 Nicotine dependence, cigarettes, uncomplicated; W44.8XXA Other foreign body entering into or through a natural orifice, initial encounter; Y93.89 Activity, other specified; Y92.89 Other specified places as the place of occurrence of the external cause; Y99.8 Other external cause status
CPT/HCPCS: 36415; 74176; 80053; 80307; 81001; 83690; 85025; 85610; 85730; 86850; 86900; 86901; 87081; 87493; 96361; 96374; 96375; G0378; J2405; J2470